=== PATIENT | male | born 1975 | race African-American/Black ===

== ENCOUNTER 2024-09-15 18:10 | Emergency (ER) | payer MEDICARE, MEDICAID ==
[~2024-09-15] VITALS: Ht 177.8 cm; Wt 69.0 kg
[2024-09-15] MEDS ORDERED: HYDROcodone-ACET 5/325MG TAB PO ONE (18:30)
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
[2024-09-15 19:04] LABS: Basophils # (auto) 0.1 10 ^3/uL (0-0.2); Basophils % (auto) 0.8 % (0.0-2.0); Eosinophils # (auto) 0.2 10 ^3/uL (0-0.8); Eosinophils % (auto) 2.6 % (0.0-7.0); Hematocrit 46.8 % (41.0-53.0); Hemoglobin 15.6 g/dL (13.5-17.5); Lymphocytes % (auto) 29.7 % (10.0-50.0); Mean Corpuscular Hemoglobin 28.7 pg (28.0-32.0); Mean Corpuscular Hgb Conc. 33.4 g/dL (32.0-36.0); Mean Corpuscular Volume 85.9 fL (80.0-100.0); Monocytes # (auto) 0.4 10 ^3/uL (0-1.3); Monocytes % (auto) 5.3 % (0.0-12.0); Neutrophils # (auto) 4.2 10 ^3/uL (1.6-8.6); Neutrophils % (auto) 61.6 % (37.0-80.0); Nucleated Red Blood Cells % 0.1 %; Platelet Count (auto) 274 10^3/uL (140-450); Red Blood Cells 5.44 10^6/uL (4.5-5.90); Red Cell Distribution Width 14.3 % (11.8-14.3); White Blood Cell 6.8 10^3/uL (4.4-10.8)
[2024-09-15 19:09] LABS: Chloride 101 mmol/L (98-107); Potassium 3.7 mmol/L (3.5-5.1); Sodium 143 mmol/L (136-145)
[2024-09-15 19:10] LABS: Anion Gap 7 (5-15); Calcium 10.2 mg/dL (8.7-10.4)
[2024-09-15 19:15] LABS: BUN/Creatinine Ratio 5.3 (10.0-20.0); Blood Urea Nitrogen 6 mg/dL (9-23); Carbon Dioxide 35 mmol/L (20-31); Glucose 106 mg/dL (74-106)
[2024-09-15 19:23] VITALS: BP 99/59; PULSE 76; RESP 18; TEMP 97.8; O2SAT 95
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
[2024-09-16] MEDS ORDERED: KETOROLAC TROMETH 30 MG/ML 1ML VIAL IV ONE (00:15)
[2024-09-16] MEDS: IOHEXOL 300 MG/ML 100ML BOTTLE IJ ONE (01:19)
== END 2024-09-16 01:56 | disposition home or self-care (01) ==
LOC: ER 18:10
DX: M25.512 Pain in left shoulder (principal); G89.29 Other chronic pain; W19.XXXA Unspecified fall, initial encounter; Y93.89 Activity, other specified; Y92.89 Other specified places as the place of occurrence of the external cause; Y99.8 Other external cause status
CPT/HCPCS: 36415; 71260; 80048; 85025; 99285; Q9967

== ENCOUNTER 2024-09-16 17:57 | Emergency (ER) | payer MEDICARE, MEDICAID ==
[~2024-09-16] VITALS: Ht 157.5 cm; Wt 70.4 kg
--- NOTE | 2024-09-16 19:08 | DVH ---
EXAM: US Duplex Left Upper Extremity Veins CLINICAL INDICATION: L clavicle/L arm pain TECHNIQUE: Real-time duplex ultrasound scan of the left upper extremity veins integrating B-mode two -dimensional vascular structure, Doppler spectral analysis, color flow Doppler imaging and compressio n. COMPARISON: None FINDINGS: DEEP VEINS: Unremarkable. No DVT in the internal jugular, subclavian, axillary, or brachial veins. The veins demonstrate normal color flow, are normally compressible, with normal phasic flow and/or augmentation response. SUPERFICIAL VEINS: Unremarkable. No thrombus in the visualized basilic and cephalic veins. SOFT TISSUES: No acute findings. OTHER FINDINGS: . IMPRESSION: No DVT.
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
[2024-09-16] MEDS: KETOROLAC TROMETH 60MG/2ML VIAL IM ONE (20:00)
[2024-09-16] MEDS: HYDROcodone-ACET 5/325MG TAB PO ONE (20:00)
[2024-09-16 20:15] VITALS: BP 112/76; PULSE 67; RESP 12; TEMP 98; O2SAT 98
== END 2024-09-16 20:49 | disposition home or self-care (01) ==
LOC: ER 17:57
DX: M25.512 Pain in left shoulder (principal); G89.29 Other chronic pain; Z88.1 Allergy status to other antibiotic agents; Z98.890 Other specified postprocedural states
CPT/HCPCS: 93971; 96372; 99285; J1885

== ENCOUNTER 2024-09-19 14:31 | Emergency (ER) | payer MEDICARE, MEDICAID ==
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
[2024-09-19 18:34] VITALS: BP 123/78; TEMP 99.1
[2024-09-19] MEDS ORDERED: CYCL-839 PO (18:45)
[2024-09-19] MEDS ORDERED: DICL50TA2 PO (18:45)
[2024-09-19 19:06] VITALS: PULSE 72; RESP 16; O2SAT 93
== END 2024-09-19 19:07 | disposition home or self-care (01) ==
LOC: ER 14:45
DX: S41.032A Puncture wound without foreign body of left shoulder, initial encounter (principal); Z88.1 Allergy status to other antibiotic agents; Z88.8 Allergy status to other drugs, medicaments and biological substances; Z98.890 Other specified postprocedural states; W34.09XA Accidental discharge from other specified firearms, initial encounter; Y93.89 Activity, other specified; Y92.89 Other specified places as the place of occurrence of the external cause; Y99.8 Other external cause status

== ENCOUNTER 2024-09-20 12:23 | Emergency (ER) | payer MEDICARE, MEDICAID ==
[~2024-09-20] VITALS: Ht 157.5 cm; Wt 71.3 kg
[~2024-09-20 12:23] MED LIST: CYCL-839 PO; DICL50TA2 PO
[2024-09-20 12:57] VITALS: BP 117/86; PULSE 66; RESP 18; TEMP 98.6; O2SAT 100
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
[2024-09-20] MEDS: KETOROLAC TROMETH 60MG/2ML VIAL IM ONE (13:20)
== END 2024-09-20 13:30 | disposition home or self-care (01) ==
LOC: ER 12:23
DX: S41.032A Puncture wound without foreign body of left shoulder, initial encounter (principal); Z88.1 Allergy status to other antibiotic agents; W34.00XA Accidental discharge from unspecified firearms or gun, initial encounter; Y93.89 Activity, other specified; Y92.89 Other specified places as the place of occurrence of the external cause; Y99.8 Other external cause status
CPT/HCPCS: 99281; J1885